=== PATIENT | male | born 1990 | race African-American/Black ===

== ENCOUNTER 2022-09-30 14:57 | Emergency (ER) | payer OTHER, SELFPAY ==
--- NOTE | 2022-09-30 15:02 | ED.URI ---
HPI - URI/Sore Throat General Chief Complaint: Upper Respiratory Infection Stated Complaint: Fatique,Cough Time Seen by Provider: 09/30/22 15:02 Source: patient Mode of arrival: ambulatory Limitations: no limitations History of Present Illness HPI Narrative: Mr. Donovan is a 32-year-old male patient presenting to the clinic today with complaints of fatigue and cough since Thursday. He reports no fever or chills MD elicited complaint: sore throat and nasal congestion Related Data Home Medications Medication Instructions Recorded Confirmed No Home Medications 09/30/22 09/30/22 Allergies Allergy/AdvReac Type Severity Reaction Status Date / Time No Known Allergies Allergy Verified 09/30/22 15:17 Review of Systems Review of Systems: Pertinent positives per HPI. Patient denies any fever, chills, rash, headache, visual changes, dizziness, shortness of breath, chest pain, palpitations, nausea, vomiting, diarrhea, constipation, abdominal pain, or any urinary issues. PMFSH Comments At the time of my signature, I reviewed and agree with the nursing past medical, surgical, social, and family history. There is no relevant family history pertinent to the patient complaint. Exam Narrative: General: Well-developed, well nourished, in no apparent distress Head: Normocephalic, atraumatic Eyes: Pupils equally round and reactive to light bilaterally, EOM intact, sclera and conjunctive clear, no discharge, lids normal Ears: TMs intact and clear, ear canals clear, no drainage, grossly hearing normal. Nose: Nares patent, clear nasal discharge, no inflammation, no sinus tenderness. Mouth: Oral pharynx without lesions or masses, good dentition, MMM. postnasal drip Neck: Supple, trachea midline, no enlargement of anterior or posterior cervical nodes, no thyroid masses or goiter palpable. Cardio: Regular rate and rhythm, s1 and s2 normal, no murmur appreciated. Resp: Clear to auscultation bilaterally, no rhonchi, rales, wheezing or rubs Course Course Emergency Course: Portions of this record may have been created with voice recognition software. Level of Care: Express Care Visit Vital Signs Vital signs: Vital Signs Temperature 36.9 C 09/30/22 15:11 Pulse Rate 92 09/30/22 15:11 Respiratory Rate 18 09/30/22 15:11 Blood Pressure 136/88 09/30/22 15:11 Pulse Oximetry 98 09/30/22 15:11 Oxygen Delivery Room Air 09/30/22 15:11 Temperature 36.9 C 09/30/22 15:11 Pulse Rate 92 09/30/22 15:11 Respiratory Rate 18 09/30/22 15:11 Blood Pressure 136/88 09/30/22 15:11 Pulse Oximetry 98 09/30/22 15:11 Oxygen Delivery Room Air 09/30/22 15:11 Vital signs reviewed MDM - URI/Sore Throat MDM Narrative Medical decision making narrative: At the time of the patient is resting comfortably on the exam table. offered COVID testing of the clinic patient declined at this time. He states he just needs a work note today supportive measures were discussed with the patient he voiced understanding of discharge instructions and agrees to treatment plan Differential Diagnosis Differential diagnosis: Likely upper respiratory infection, otitis media, sinusitis, viral infection, bronchitis, influenza, pharyngitis and other ( COVID) Discharge Plan Discharge Clinical Impression: Acute viral syndrome, Acute upper respiratory infection, PND (post-nasal drip) Cough Qualifiers: Cough type: acute Qualified Code(s): R05.1 - Acute cough Patient Disposition: Home, Self-Care Condition: Stable Instructions: Antibiotic Form, Upper Respiratory Infection (ED), Viral Syndrome (ED), Acute Cough (ED), Postnasal Drip (DC) Additional Instructions: Increase fluids and stay well hydrated Tylenol/motrin for pain/fever Flonase and OTC antihistamines as directed Vicks vapor rub to open sinuses Sinus rinses for congestion Cepacol spray, cough drops, throat lozenges, warm tea with honey/lemon, gargle salt
[2022-09-30 15:11] VITALS: BP 136/88; PULSE 92; RESP 18; TEMP 36.9; O2SAT 98
== END 2022-09-30 15:26 | disposition home or self-care (01) ==
PROVIDERS: Emergency Provider Nurse Practitioner Family
DX: J06.9 Acute upper respiratory infection, unspecified (principal); R05.1 Acute cough; R09.82 Postnasal drip
CPT/HCPCS: 99211; G0463